=== PATIENT | male | born 1935 | race Caucasian/White ===

== ENCOUNTER 2017-04-29 10:13 | Inpatient (IN) | payer MEDICARE, BC ==
[~2017-04-29] VITALS: Ht 193 cm; Wt 94.8 kg
[~2017-04-29 10:13] MED LIST: ALLA266C2 TP; AMIO200T PO; ASPI-1152 PO; ATOR40TA PO; CARV25TA2 PO; DUTA0.5C2 PO; LACT10SO6 PO; PANT40TA2 PO; RIVA10TA PO; SITA1TAB2 PO; SITA50TA PO; TAMS-12 PO; Zolpidem Tartrate PO
[2017-04-29] MEDS ORDERED: ONDANSETRON HCL/PF 4 MG/2 ML VIAL IVP ONE (10:30)
[2017-04-29] MEDS ORDERED: IV NS 0.9% 1,000 ML BAG IV ONE (10:30)
[2017-04-29] MEDS ORDERED: ONDANSETRON HCL/PF 4 MG/2 ML VIAL ONE (10:43)
[2017-04-29 11:07] LABS: BASOPHILS % (AUTO) 0.2 % (0.0-2.0); EOSINOPHILS # (AUTO) 0.1 /CMM (0.0-0.7); EOSINOPHILS % (AUTO) 1.3 % (0.0-6.0); HEMATOCRIT 35 % (39-51); HEMOGLOBIN 12.1 g/dL (13.5-17.5); LYMPHOCYTES # (AUTO) 1.1 /CMM (0.8-4.8); LYMPHOCYTES % (AUTO) 11.9 % (20.0-44.0); MEAN CORPUSCULAR HEMOGLOBIN 32 PG (26.0-33.0); MEAN CORPUSCULAR HGB CONC 35 g/dl (31.0-36.0); MEAN CORPUSCULAR VOLUME 93 fL (80-96); MONOCYTES # (AUTO) 0.8 /CMM (0.1-1.30); MONOCYTES % (AUTO) 8.5 % (2.0-12.0); NEUTROPHILS % (AUTO) 78.1 % (43.0-81.0); PLATELET COUNT (AUTO) 166 /CMM (150-450); RDW COEFFICIENT OF VARIATION 15.7 (11.5-15.0); RED BLOOD CELL COUNT(AUTO) 3.77 MIL/uL (4.5-6.0)
[2017-04-29 11:16] LABS: CALCIUM, SERUM 9.4 mg/dL (8.5-10.1); CARBON DIOXIDE 27 mmol/L (21-32); CHLORIDE 108 mmol/L (98-107); CREATININE 2.3 mg/dL (0.6-1.3); GLUCOSE 167 mg/dL (74-106); POTASSIUM 3.7 mmol/L (3.5-5.1); SODIUM SERUM 141 mmol/L (136-145); UREA NITROGEN, BLOOD 20 mg/dL (7-18)
[2017-04-29 11:23] LABS: TROPONIN I 0.072 ng/mL (0.00-0.056)
[2017-04-29 11:26] LABS: INR 1.54 (0.85-1.15)
[2017-04-29 11:28] LABS: ALANINE AMINOTRANSFERASE 26 U/L (12-78); ALBUMIN 2.5 g/dL (3.4-5.0); ALKALINE PHOSPHATASE 72 U/L (46-116); ASPARTATE AMINOTRANSFERASE 59 U/L (15-37); B-TYPE NATRIURETIC PEPTIDE 5307 PG/ML (0-125); BILIRUBIN,DIRECT 0.4 mg/dL (0.0-0.2); BILIRUBIN,TOTAL 1.3 mg/dL (0.2-1.0); TOTAL PROTEIN, SERUM 5.3 g/dL (6.4-8.2)
[2017-04-29] MEDS ORDERED: AMIO200T2 PO (11:39)
[2017-04-29] MEDS ORDERED: DUTA0.5C PO (11:39)
[2017-04-29] MEDS ORDERED: FUROSEMIDE 40 MG/4 ML VIAL IV ONE (12:00)
[2017-04-29] MEDS ORDERED: FUROSEMIDE 20 MG/2 ML VIAL ONE (12:01)
[2017-04-29] MEDS ORDERED: FUROSEMIDE 40 MG/4 ML VIAL ONE (12:01)
[2017-04-29] MEDS ORDERED: MAG HYDROX/AL HYDROX/SIMETH 30 ML UDC PO PRN (13:30)
[2017-04-29] MEDS ORDERED: Z GUARD REMEDY 2 OZ OINT TP PRN (13:30)
[2017-04-29] MEDS ORDERED: ZOLPIDEM TARTRATE 5 MG TABLET PO PRN (13:30)
[2017-04-29] MEDS ORDERED: HYDROCODONE/APAP 5/325MG 1 EACH TABLET PO PRN (13:30)
[2017-04-29] MEDS ORDERED: MAGNESIUM HYDROXIDE 30 ML UDC PO PRN (13:30)
[2017-04-29] MEDS ORDERED: ACETAMINOPHEN 325 MG TABLET PO PRN (13:30)
[2017-04-29] MEDS ORDERED: ONDANSETRON HCL/PF 4 MG/2 ML VIAL IVP PRN (13:30)
[2017-04-29] MEDS ORDERED: DEXTROSE 50%-WATER 50 ML DISP.SYRIN IV PRN (13:30)
[2017-04-29 14:00] VITALS: BP 123/65
[2017-04-29 16:00] VITALS: BP_SYST 105; BP_SYST 144; BP_DIAS 42; BP_DIAS 76
[2017-04-29] MEDS: INSULIN REGULAR, HUMAN 100 UNIT/ML 3 ML VIAL SQ PRN (17:25)
[2017-04-29] MEDS: BLOOD SUGAR DIAGNOSTIC 1 EACH STRIP VI SCH ×2 (17:25→22:35)
[2017-04-29 20:00] VITALS: BP 104/51
[2017-04-29] MEDS: CARVEDILOL 12.5 MG TABLET PO SCH (21:00)
[2017-04-29] MEDS: ATORVASTATIN 40 MG TABLET PO SCH (22:35)
[2017-04-29] MEDS: DUTASTERIDE (0.5 MG) 0.5 MG CAPSULE PO SCH (22:35)
[2017-04-30 04:47] VITALS: BP 140/65
[2017-04-30] MEDS: BLOOD SUGAR DIAGNOSTIC 1 EACH STRIP VI SCH ×4 (07:00→21:15)
[2017-04-30] MEDS: INSULIN REGULAR, HUMAN 100 UNIT/ML 3 ML VIAL SQ PRN ×3 (07:02→17:50)
[2017-04-30 07:44] LABS: BASOPHILS % (AUTO) 0.5 % (0.0-2.0); EOSINOPHILS # (AUTO) 0.2 /CMM (0.0-0.7); EOSINOPHILS % (AUTO) 2.1 % (0.0-6.0); HEMATOCRIT 33 % (39-51); HEMOGLOBIN 11.3 g/dL (13.5-17.5); LYMPHOCYTES # (AUTO) 1.2 /CMM (0.8-4.8); LYMPHOCYTES % (AUTO) 13.6 % (20.0-44.0); MEAN CORPUSCULAR HEMOGLOBIN 33 PG (26.0-33.0); MEAN CORPUSCULAR HGB CONC 35 g/dl (31.0-36.0); MEAN CORPUSCULAR VOLUME 95 fL (80-96); MONOCYTES # (AUTO) 0.9 /CMM (0.1-1.30); MONOCYTES % (AUTO) 9.7 % (2.0-12.0); NEUTROPHILS # (AUTO) 6.7 /CMM (1.8-8.9); NEUTROPHILS % (AUTO) 74.1 % (43.0-81.0); PLATELET COUNT (AUTO) 163 /CMM (150-450); RED BLOOD CELL COUNT(AUTO) 3.44 MIL/uL (4.5-6.0); WHITE BLOOD COUNT (AUTO) 9.1 K/uL (4.3-11.0)
[2017-04-30 08:00] VITALS: BP 127/64
[2017-04-30 08:01] LABS: CALCIUM, SERUM 9.3 mg/dL (8.5-10.1); CHLORIDE 108 mmol/L (98-107); CREATININE 2.1 mg/dL (0.6-1.3); GLUCOSE 135 mg/dL (74-106); PHOSPHORUS 2.5 mg/dL (2.5-4.9); POTASSIUM 3.3 mmol/L (3.5-5.1); SODIUM SERUM 142 mmol/L (136-145); UREA NITROGEN, BLOOD 20 mg/dL (7-18)
[2017-04-30 08:05] LABS: MAGNESIUM 1.2 mg/dL (1.8-2.4)
[2017-04-30 08:07] LABS: CARBON DIOXIDE 27 mmol/L (21-32)
[2017-04-30] MEDS: AMIODARONE HCL 200 MG TABLET PO SCH (09:13)
[2017-04-30] MEDS: CARVEDILOL 12.5 MG TABLET PO SCH ×2 (09:13→21:00)
[2017-04-30] MEDS: RIVAROXABAN 10 MG TABLET PO SCH (09:26)
[2017-04-30] MEDS: IV 1/2NS 1000 ML 1,000 ML IV PRN (09:30)
[2017-04-30] MEDS: Magnesium 1GM/D5W 100ML PREMIX 100 ML IV SCH ×4 (11:17→16:29)
[2017-04-30] MEDS ORDERED: POTASSIUM CHLORIDE 10 MEQ TABLET.SA PO ONE (12:00)
[2017-04-30 16:00] VITALS: BP 153/73
[2017-04-30 20:00] VITALS: BP 129/56
[2017-04-30] MEDS: DUTASTERIDE (0.5 MG) 0.5 MG CAPSULE PO SCH (21:14)
[2017-04-30] MEDS: ATORVASTATIN 40 MG TABLET PO SCH (21:14)
[2017-04-30] MEDS: *INSULIN REGULAR(HUMULIN R)HUM 100 UNIT/ML VIAL SQ PRN (21:24)
[2017-05-01] VITALS: BP 117/55
[2017-05-01] MEDS: BLOOD SUGAR DIAGNOSTIC 1 EACH STRIP VI SCH ×4 (06:39→22:29)
[2017-05-01] MEDS: INSULIN REGULAR, HUMAN 100 UNIT/ML 3 ML VIAL SQ PRN ×3 (06:42→17:49)
[2017-05-01 07:33] LABS: BASOPHILS % (AUTO) 0.3 % (0.0-2.0); EOSINOPHILS # (AUTO) 0.2 /CMM (0.0-0.7); EOSINOPHILS % (AUTO) 2.5 % (0.0-6.0); HEMATOCRIT 33 % (39-51); HEMOGLOBIN 11.3 g/dL (13.5-17.5); LYMPHOCYTES # (AUTO) 1.3 /CMM (0.8-4.8); LYMPHOCYTES % (AUTO) 15.9 % (20.0-44.0); MEAN CORPUSCULAR HEMOGLOBIN 33 PG (26.0-33.0); MEAN CORPUSCULAR HGB CONC 35 g/dl (31.0-36.0); MEAN CORPUSCULAR VOLUME 94 fL (80-96); MONOCYTES # (AUTO) 0.9 /CMM (0.1-1.30); MONOCYTES % (AUTO) 11.1 % (2.0-12.0); NEUTROPHILS % (AUTO) 70.2 % (43.0-81.0); PLATELET COUNT (AUTO) 148 /CMM (150-450); RDW COEFFICIENT OF VARIATION 16.7 (11.5-15.0); RED BLOOD CELL COUNT(AUTO) 3.44 MIL/uL (4.5-6.0); WHITE BLOOD COUNT (AUTO) 8.5 K/uL (4.3-11.0)
[2017-05-01 07:48] LABS: ALANINE AMINOTRANSFERASE 26 U/L (12-78); ALBUMIN 2.3 g/dL (3.4-5.0); ALKALINE PHOSPHATASE 66 U/L (46-116); ASPARTATE AMINOTRANSFERASE 49 U/L (15-37); CALCIUM, SERUM 9.5 mg/dL (8.5-10.1); CARBON DIOXIDE 31 mmol/L (21-32); CHLORIDE 106 mmol/L (98-107); CREATININE 1.9 mg/dL (0.6-1.3); GLUCOSE 141 mg/dL (74-106); MAGNESIUM 1.7 mg/dL (1.8-2.4); PHOSPHORUS 2.2 mg/dL (2.5-4.9); POTASSIUM 3.3 mmol/L (3.5-5.1); SODIUM SERUM 142 mmol/L (136-145); TOTAL PROTEIN, SERUM 4.9 g/dL (6.4-8.2); TROPONIN I 0.079 ng/mL (0.00-0.056); UREA NITROGEN, BLOOD 19 mg/dL (7-18)
[2017-05-01 07:56] LABS: CREATINE KINASE, TOTAL 80 U/L (39-308)
[2017-05-01 08:00] VITALS: BP 131/50
[2017-05-01] MEDS: AMIODARONE HCL 200 MG TABLET PO SCH (08:33)
[2017-05-01] MEDS: CARVEDILOL 12.5 MG TABLET PO SCH ×2 (08:33→20:51)
[2017-05-01] MEDS: RIVAROXABAN 10 MG TABLET PO SCH (08:34)
[2017-05-01] MEDS: Magnesium 1GM/D5W 100ML PREMIX 100 ML IV SCH ×2 (09:03→10:01)
[2017-05-01] MEDS: POTASSIUM CHLORIDE 20 MEQ TAB.PRT.SR PO SCH ×3 (09:03→12:49)
[2017-05-01 09:23] LABS: APPEARANCE,URINE CLEAR (CLEAR); BILIRUBIN,URINE NEGATIVE (NEGATIVE); BLOOD, URINE NEGATIVE Ery/uL (NEGATIVE); COLOR,URINE YELLOW (YELLOW); KETONES,URINE NEGATIVE (NEGATIVE); LEUKOCYTE ESTERASE ,URINE NEGATIVE (NEGATIVE); NITRITE, URINE NEGATIVE (NEGATIVE); PH,URINE 5.5 (5.0-8.0); PROTEIN,URINE NEGATIVE (NEGATIVE); UGLUCOSE NEGATIVE (NEGATIVE); UROBILINOGEN,URINE 0.2 EU/dL (0.2)
[2017-05-01 10:03] LABS: CREATININE, URINE 137.4 MG/DL (30.0-125.0); URINE TOTAL PROTEIN 34.2 mg/dL (0-11.9)
[2017-05-01] MEDS ORDERED: POTASSIUM PHOSPHATE MM 15 MMOL in IV D5W 250 ML IV SCH (11:00)
[2017-05-01] MEDS ORDERED: Magnesium 1GM/D5W 100ML PREMIX 100 ML IV SCH (11:00)
[2017-05-01 11:37] LABS: INR 1.49 (0.87-1.13)
[2017-05-01] MEDS: Potassium Phosphate meq 11 MEQ in IV D5W 100 ML IV SCH ×2 (12:49→15:42)
[2017-05-01 13:49] LABS: EOSINOPHIL,URINE None Seen
[2017-05-01 16:00] VITALS: BP 145/75
[2017-05-01 20:00] VITALS: BP 120/58
[2017-05-01] MEDS: ATORVASTATIN 40 MG TABLET PO SCH (22:01)
[2017-05-01] MEDS: DUTASTERIDE (0.5 MG) 0.5 MG CAPSULE PO SCH (22:01)
[2017-05-01] MEDS: *INSULIN REGULAR(HUMULIN R)HUM 100 UNIT/ML VIAL SQ PRN (22:16)
[2017-05-01] MEDS: IV 1/2NS 1000 ML 1,000 ML IV PRN (22:36)
[2017-05-02] MEDS: BLOOD SUGAR DIAGNOSTIC 1 EACH STRIP VI SCH ×2 (07:20→12:08)
[2017-05-02] MEDS: INSULIN REGULAR, HUMAN 100 UNIT/ML 3 ML VIAL SQ PRN ×2 (07:25→12:15)
[2017-05-02 08:00] VITALS: BP 148/98
[2017-05-02 08:40] VITALS: BP 148/98
[2017-05-02] MEDS: AMIODARONE HCL 200 MG TABLET PO SCH (08:40)
[2017-05-02] MEDS: CARVEDILOL 12.5 MG TABLET PO SCH (08:40)
[2017-05-02 08:49] LABS: BASOPHILS % (AUTO) 0.2 % (0.0-2.0); EOSINOPHILS # (AUTO) 0.2 /CMM (0.0-0.7); EOSINOPHILS % (AUTO) 1.6 % (0.0-6.0); HEMATOCRIT 33 % (39-51); HEMOGLOBIN 11.4 g/dL (13.5-17.5); LYMPHOCYTES # (AUTO) 1.1 /CMM (0.8-4.8); LYMPHOCYTES % (AUTO) 10.7 % (20.0-44.0); MEAN CORPUSCULAR HEMOGLOBIN 33 PG (26.0-33.0); MEAN CORPUSCULAR HGB CONC 34 g/dl (31.0-36.0); MEAN CORPUSCULAR VOLUME 95 fL (80-96); MONOCYTES % (AUTO) 9.8 % (2.0-12.0); NEUTROPHILS # (AUTO) 8.2 /CMM (1.8-8.9); NEUTROPHILS % (AUTO) 77.7 % (43.0-81.0); PLATELET COUNT (AUTO) 162 /CMM (150-450); RDW COEFFICIENT OF VARIATION 16.4 (11.5-15.0); WHITE BLOOD COUNT (AUTO) 10.5 K/uL (4.3-11.0)
[2017-05-02] MEDS: RIVAROXABAN 10 MG TABLET PO SCH (08:49)
[2017-05-02 09:09] LABS: ALANINE AMINOTRANSFERASE 28 U/L (12-78); ALBUMIN 2.1 g/dL (3.4-5.0); ALKALINE PHOSPHATASE 61 U/L (46-116); ASPARTATE AMINOTRANSFERASE 49 U/L (15-37); CALCIUM, SERUM 9.3 mg/dL (8.5-10.1); CARBON DIOXIDE 30 mmol/L (21-32); CHLORIDE 107 mmol/L (98-107); CREATININE 1.6 mg/dL (0.6-1.3); GLUCOSE 148 mg/dL (74-106); MAGNESIUM 1.6 mg/dL (1.8-2.4); PHOSPHORUS 2.2 mg/dL (2.5-4.9); POTASSIUM 4.3 mmol/L (3.5-5.1); SODIUM SERUM 139 mmol/L (136-145); TOTAL PROTEIN, SERUM 4.7 g/dL (6.4-8.2); UREA NITROGEN, BLOOD 16 mg/dL (7-18)
[2017-05-02 10:17] LABS: *SPE A/G RATIO 1.4 (0.7-1.7); *SPE ALBUMIN 2.6 g/dL (2.9-4.4); *SPE ALPHA-1-GLOBULIN 0.2 g/dL (0.0-0.4); *SPE ALPHA-2-GLOBULIN 0.6 g/dL (0.4-1.0); *SPE BETA GLOBULIN 0.6 g/dL (0.7-1.3); *SPE GLOBULIN, TOTAL 1.9 g/dL (2.2-3.9); *SPE M-SPIKE Not Observed g/dL (Not Observed); *SPEGAMMA GLOBULIN 0.6 g/dL (0.4-1.8)
[2017-05-02 12:12] LABS: PTH, INTACT 55 pg/mL (15-65)
[2017-05-02] MEDS ORDERED: K PHOS NEUTRAL 250 MG TABLET PO ONE (14:00)
[2017-05-04 11:11] LABS: CALCITRIOL VIT D,1, 25 DIHYDRO 16.2 pg/mL (19.9-79.3)
== END 2017-05-02 14:30 | DRG 280 ==
LOC: ER 10:16 → TELE 13:32 → MED 04-30 09:26
PROVIDERS: ADMIT Internal Medicine; ATTEND Internal Medicine
DX: I21.A1 Myocardial infarction type 2 (principal); N17.0 Acute kidney failure with tubular necrosis; E87.2 Acidosis; E11.22 Type 2 diabetes mellitus with diabetic chronic kidney disease; I48.91 Unspecified atrial fibrillation; I13.0 Hypertensive heart and chronic kidney disease with heart failure and stage 1 through stage 4 chronic kidney disease, or unspecified chronic kidney disease; I50.40 Unspecified combined systolic (congestive) and diastolic (congestive) heart failure; G90.8 Other disorders of autonomic nervous system; E83.42 Hypomagnesemia; D32.9 Benign neoplasm of meninges, unspecified; E86.0 Dehydration; D63.8 Anemia in other chronic diseases classified elsewhere; E78.5 Hyperlipidemia, unspecified; I25.10 Atherosclerotic heart disease of native coronary artery without angina pectoris; E87.6 Hypokalemia; Z95.1 Presence of aortocoronary bypass graft; Z90.49 Acquired absence of other specified parts of digestive tract; Z86.73 Personal history of transient ischemic attack (TIA), and cerebral infarction without residual deficits; Z86.011 Personal history of benign neoplasm of the brain; Z82.49 Family history of ischemic heart disease and other diseases of the circulatory system; Z79.899 Other long term (current) drug therapy; Z79.82 Long term (current) use of aspirin; Z79.01 Long term (current) use of anticoagulants; N18.9 Chronic kidney disease, unspecified; N40.0 Benign prostatic hyperplasia without lower urinary tract symptoms; R26.9 Unspecified abnormalities of gait and mobility
CPT/HCPCS: 36415; 70450-TC; 71045-TC; 72131-TC; 80048-TC; 80053-TC; 80076-TC; 81000-TC; 82306; 82550-TC; 82570-TC; 82652; 82962-TC; 83605-TC; 83735-TC; 83880; 83970; 84100-TC; 84155; 84155-TC; 84165; 84300-TC; 84484-TC; 85025-TC; 85610-TC; 85730-TC; 87040-TC; 87081-TC; 93307-TC; 97110-TC; 97530-TC; A4606; J1815; J1940; J2405; J3475; J3490; J7030; J7060; Z7610

== ENCOUNTER 2017-05-08 18:32 | Emergency (ER) | payer MEDICARE, BC ==
[~2017-05-08] VITALS: Ht 182.9 cm; Wt 90.7 kg
[~2017-05-08 18:32] MED LIST changes: -ALLA266C2 TP; -AMIO200T PO; +AMIO200T2 PO; -ASPI-1152 PO; +DUTA0.5C PO; -DUTA0.5C2 PO; -LACT10SO6 PO; -PANT40TA2 PO; -SITA50TA PO; -TAMS-12 PO; -Zolpidem Tartrate PO
--- NOTE | 2017-05-08 19:13 | NUR ---
81 Y/O MALE PLACED IN BED 1 S/P TRIP AND FALL. PT FELL ON LEFT HIP. NO OBVIOUS ROTATION OF LEG. PT ALERT AND ORIENTED. REMEBERS ENTIRE EPISODE. NOAH MARQUES.
--- NOTE | 2017-05-08 20:07 | NUR ---
X-RAY OF LEFT HIP TAKEN. WAITING FOR RESULTS.
--- NOTE | 2017-05-08 21:09 | NUR ---
GOT REPORT FROM MARCIANO. ASSUMED CARE OF PATIENT CARE.
--- NOTE | 2017-05-08 21:20 | NUR ---
CALLED [facility] FOR TRANSPORT ETA OF [id number] WAS GIVEN. TRIP#[id number]
--- NOTE | 2017-05-08 22:20 | NUR ---
Patient discharged to [facility] in stable condition. Written and verbal after care instructions given. Patient verbalizes understanding of instruction. Pt transferred with cristo. stephanes. no acute distress noted. pt aaox4
[2017-05-08 22:50] VITALS: BP 141/78
== END 2017-05-08 22:40 | disposition home or self-care (01) ==
LOC: ER 18:39
DX: M25.552 Pain in left hip (principal); E11.9 Type 2 diabetes mellitus without complications; I11.0 Hypertensive heart disease with heart failure; I50.9 Heart failure, unspecified; I48.91 Unspecified atrial fibrillation; Z95.0 Presence of cardiac pacemaker
CPT/HCPCS: 73502; A4606; Z7610

== ENCOUNTER 2017-07-10 03:35 | Inpatient (IN) | payer MEDICARE, BC ==
[~2017-07-10] VITALS: Ht 167.6 cm; Wt 85.7 kg
[~2017-07-10 03:35] MED LIST changes: -AMIO200T2 PO; +AMIO200T4 PO
--- NOTE | 2017-07-10 03:35 | NUR ---
TO BED 10 BIB PARAMEDICS C/O HYPOGLYCEMIA, BS-39; GIVEN D10 AND SANDWICH BY EMS COMPUTER AIDED DESIGN OPERATOR, BS 184. RECEIVE PT AAOX2 NO ACUTE DISTRESS NOTED, RESP EVEN AND UNLABORED. SKIN WARM, NONDIAPHORETIC. ER MD AT BEDSIDE TO EVAL PT WITH ORDERS RECEIVED. WILL CARRY OUT ORDERS.
--- NOTE | 2017-07-10 03:35 | NUR ---
TO BED 10 BIB PARAMEDICS C/O HYPOGLYCEMIA, BS-39; GIVEN D10 AND SANDWICH BY EMS VISITOR SERVICES COORDINATOR, BS 184. RECEIVE PT AAOX4 NO ACUTE DISTRESS NOTED, RESP EVEN AND UNLABORED. SKIN WARM, NONDIAPHORETIC. ER MD AT BEDSIDE TO EVAL PT WITH ORDERS RECEIVED. WILL CARRY OUT ORDERS.
[2017-07-10 04:00] LABS: BASOPHILS % (AUTO) 0.1 % (0.0-2.0); EOSINOPHILS % (AUTO) 0.8 % (0.0-6.0); HEMATOCRIT 35 % (39-51); HEMOGLOBIN 11.8 g/dL (13.5-17.5); LYMPHOCYTES # (AUTO) 1.1 /CMM (0.8-4.8); LYMPHOCYTES % (AUTO) 8.1 % (20.0-44.0); MEAN CORPUSCULAR HGB CONC 34 g/dl (31.0-36.0); MEAN CORPUSCULAR VOLUME 94 fL (80-96); MONOCYTES # (AUTO) 0.6 /CMM (0.1-1.30); MONOCYTES % (AUTO) 4.5 % (2.0-12.0); NEUTROPHILS # (AUTO) 11.4 /CMM (1.8-8.9); NEUTROPHILS % (AUTO) 86.5 % (43.0-81.0); PLATELET COUNT (AUTO) 333 /CMM (150-450); RDW COEFFICIENT OF VARIATION 14.3 (11.5-15.0); WHITE BLOOD COUNT (AUTO) 13.2 K/uL (4.3-11.0)
--- NOTE | 2017-07-10 04:09 | NUR ---
PT ASLEEP, EASILY AROUSABLE NO ACUTE DISTRESS NOTED, RESP EVEN AND UNLABORED. CALL LIGHT WITHIN REACH.
[2017-07-10 04:14] LABS: CALCIUM, SERUM 9.1 mg/dL (8.5-10.1); CARBON DIOXIDE 27 mmol/L (21-32); CHLORIDE 107 mmol/L (98-107); CREATININE 1.4 mg/dL (0.6-1.3); GLUCOSE 102 mg/dL (74-106); POTASSIUM 3.9 mmol/L (3.5-5.1); SODIUM SERUM 140 mmol/L (136-145); UREA NITROGEN, BLOOD 21 mg/dL (7-18)
[2017-07-10 04:16] LABS: SERUM AMMONIA 4 umol/L (11-32)
[2017-07-10 04:20] LABS: ALANINE AMINOTRANSFERASE 66 U/L (12-78); ALBUMIN 2.1 g/dL (3.4-5.0); ALKALINE PHOSPHATASE 84 U/L (46-116); ASPARTATE AMINOTRANSFERASE 70 U/L (15-37); BILIRUBIN,DIRECT 0.4 mg/dL (0.0-0.2); BILIRUBIN,TOTAL 0.9 mg/dL (0.2-1.0); INR 1.2 (0.87-1.13); LIPASE 39 U/L (73-393); TOTAL PROTEIN, SERUM 5.3 g/dL (6.4-8.2)
[2017-07-10 04:22] LABS: TROPONIN I 0.045 ng/mL (0.00-0.056)
--- NOTE | 2017-07-10 04:25 | NUR ---
P TRANSPORTED TO RADIOLOGY FOR CT HEAD.
[2017-07-10] MEDS ORDERED: IV NS 0.9% 1,000 ML IV ONE (04:39)
[2017-07-10 05:32] LABS: APPEARANCE,URINE SL CLOUDY (CLEAR); BILIRUBIN,URINE NEGATIVE (NEGATIVE); BLOOD, URINE TRACE Ery/uL (NEGATIVE); COLOR,URINE YELLOW (YELLOW); KETONES,URINE NEGATIVE (NEGATIVE); LEUKOCYTE ESTERASE ,URINE TRACE (NEGATIVE); NITRITE, URINE NEGATIVE (NEGATIVE); PROTEIN,URINE 2+ mg/dl (NEGATIVE); UGLUCOSE TRACE mg/dL (NEGATIVE)
--- NOTE | 2017-07-10 05:48 | NUR ---
ER TALKING TO RADIOLOGY REGARDING CT HEAD RESULT.
--- NOTE | 2017-07-10 05:58 | NUR ---
PT RESTING QUIETLY, NO ACUTE DISTRESS NOTED, RESP EVEN AND UNLABORED.
[2017-07-10 06:01] LABS: BACTERIA,URINE Few /HPF (None Seen); SQUAMOUS EPITHELIAL CELL,UR Moderate /HPF (None Seen); WBC,URINE 51-80 /HPF (0-3)
--- NOTE | 2017-07-10 06:01 | NUR ---
JASS HAQ TALKING TO CHANEL KRUSE REGARDING PT ADMISSION.
[2017-07-10] MEDS ORDERED: IV D5W 1,000 ML IV PRN (06:08)
[2017-07-10] MEDS ORDERED: ONDANSETRON HCL/PF 4 MG/2 ML VIAL IVP PRN (06:30)
[2017-07-10] MEDS ORDERED: ACETAMINOPHEN 325 MG TABLET PO PRN (06:30)
[2017-07-10] MEDS ORDERED: ACETAMINOPHEN W/ CODEINE#3 1 EA TABLET PO PRN (06:30)
--- NOTE | 2017-07-10 07:26 | NUR ---
REPORT GIVEN TO CLARA/SHOW OPERATIONS SUPERVISOR FLOOR
--- NOTE | 2017-07-10 07:30 | NUR ---
REPORT RECEIVED FROM ER. WAITING FOR PT TO ARRIVE. BED PREPARED.
[2017-07-10 08:22] LABS: CHOLESTEROL 91 mg/dL (<200); HDL CHOLESTEROL 19 mg/dL (40-60); LDL 55 mg/dL (0-99); TRIGLYCERIDES 50 mg/dL (30-150)
--- NOTE | 2017-07-10 08:22 | NUR ---
PT RECEIVED AND IN BED. NO SOB OR DISTRESS NOTED AT THIS TIME. PATIENT DENIES PAIN. PATIENT ORIENTED TO ROOM AND CALL LIGHT. PATIENT DIAPER CHANGED AND SKIN ASSESSED. VITAL SIGNS CHECKED AND RECORDED. ONLY PT BELONGING IS A DIGITAL WATCH. BED IN A LOW POSITION, CALL LIGHT WITHIN PATIENT REACH. WILL MONITOR.
--- NOTE | 2017-07-10 08:32 | NUR ---
PT IS AV PACING AT 60 ON THE MONITOR. WILL DO NURSING BEDSIDE SWALLOW EVAL PRIOR TO GIVING MEDS.
[2017-07-10] MEDS ORDERED: CARVEDILOL 25 MG TABLET PO SCH (09:00)
[2017-07-10 09:06] LABS: INR 1.1 (0.87-1.13)
[2017-07-10 09:07] VITALS: BP 172/81
--- NOTE | 2017-07-10 09:13 | NUR ---
WILL ASK MD ABOUT D5W ORDER PATIENT BLOOD SUGAR IS NOW 204.
--- NOTE | 2017-07-10 09:37 | NUR ---
PT PASSED NURSING SWALLOW EVAL. ABLE TO TOLERATE THIN LIQUIDS WITHOUT COUGHING OR CHOKING.
[2017-07-10] MEDS: AMIODARONE HCL 200 MG TABLET PO SCH (09:38)
[2017-07-10] MEDS: SENNOSIDES/DOCUSATE SODIUM 1 TAB TABLET PO SCH (09:38)
[2017-07-10] MEDS: PANTOPRAZOLE 40 MG TABLET.DR PO SCH (09:38)
[2017-07-10] MEDS: CARVEDILOL 12.5 MG TABLET PO SCH (09:38)
[2017-07-10] MEDS: DOCUSATE SODIUM 100 MG CAPSULE PO SCH ×2 (09:39→16:31)
[2017-07-10] MEDS: BLOOD SUGAR DIAGNOSTIC 1 EACH STRIP IN SCH ×5 (09:39→22:07)
[2017-07-10] MEDS ORDERED: Z GUARD REMEDY 4 OZ OINT TP PRN (10:00)
--- NOTE | 2017-07-10 10:13 | NUR ---
SPOKE TO ERIKA ON THE FLOOR. INSTRUCTIONAL TECHNOLOGY SPECIALIST STATES OK TO DC D5W PATIENT IS EATING. STATES TO KEEP Q4H ACCU CHECKS. WILL CARRY OUT ORDERS.
--- NOTE | 2017-07-10 11:09 | NUR ---
CALLED [facility] AND ASKED FOR DVT PUMP. THEY STATE THEY WILL SEND ONE TO THE UNIT SOON ONE BECOMES AVAILABLE.
[2017-07-10 12:00] VITALS: BP 142/72
[2017-07-10] MEDS: CEFTRIAXONE 1 G in IV D5W 50 ML IV SCH (12:12)
--- NOTE | 2017-07-10 12:15 | NUR ---
PLACED PT ON SCD PER MD ORDER.
[2017-07-10 15:50] VITALS: BP 135/67
--- NOTE | 2017-07-10 17:10 | NUR ---
CALLED AND SPOKE TO ERIKA ABOUT PATIENT BLOOD SUGAR LEVELS. BASED ON THE INFORMATION, ERIKA ASKS TO PLACE THE PT ON A MILD, AC/HS INSULIN SLIDING SCALE. FIRER PORTABLE BOILER ALSO STATES TO DC THE Q4H ACCU CHECKS. WILL PLACE ORDERS.
[2017-07-10] MEDS ORDERED: DEXTROSE 50%-WATER 50 ML DISP.SYRIN IV PRN (17:30)
--- NOTE | 2017-07-10 17:36 | NUR ---
CALLED PHARMACY AND TALKED TO PETE. INFORMED HIM OF NEW INSULIN ORDER ON PT. PETE STATES HE WILL PROCESS THE NEW MED AND SEND IT SOON HE CAN.
[2017-07-10] MEDS: INSULIN REGULAR, HUMAN 100 UNIT/ML 3 ML VIAL SQ PRN ×2 (17:57→22:29)
--- NOTE | 2017-07-10 18:36 | NUR ---
NO SIGNIFICANT CHANGES IN PATIENT CONDITION THROUGHOUT THE SHIFT. NEURO CHECKS DONE Q4H, NO CHANGES. BED IN A LOW POSITION, CALL LIGHT WITHIN PATIENT REACH. NO SOB OR DISTRESS, PATIENT DENIES PAIN. WILL ENDORSE FOR JACQUELINE.
--- NOTE | 2017-07-10 19:20 | NUR ---
CREW BOAT OPERATOR OPENING NOTE RECEIVED PATIENT IN BED RESTING COMFORTABLY, ALERT ORIENT X3, SLIGHT CONFUSION AT TIMES. ON 2L OXYGEN VIA NC, TOLERATING WELL. IN NO APPARENT DISTRESS OR DISCOMFORT, RESPIRATIONS EVEN AND UNLABORED. DENIES SOB OR PAIN AT THIS TIME. LAC IV LINE 20G SL. PATENT AND INTACT. PATIENT ABLE TO VERBALIZE NEEDS. INCONTINENT WITH DIAPER, KEPT CLEAN AND COMFORTABLE. SAFETY MEASURES IN PLACE, BED IN LOW LOCKED POSITION SIDE RAILS UP X2, CALL LIGHT WITHIN EASY REACH. WILL CONTINUE TO MONITOR.
[2017-07-10 20:00] VITALS: BP_SYST 115; BP_SYST 117; BP_DIAS 48; BP_DIAS 64
--- NOTE | 2017-07-10 21:00 | NUR ---
COREG HELD FOR NOW BP: 117/48, HR: 60. WILL RECHECK IN ONE HOUR.
[2017-07-10] MEDS ORDERED: SIMVASTATIN 10 MG TABLET PO SCH (22:00)
--- NOTE | 2017-07-10 22:00 | NUR ---
CONTINUE HOLDING COREG, CHECKED BP: 139/56, HR 60. VERIFIED MANUALLY: 130/55, HR 60. WILL CHECK VITALS IN ONE HOUR.
[2017-07-10] MEDS: DUTASTERIDE (0.5 MG) 0.5 MG CAPSULE PO SCH (22:23)
[2017-07-10] MEDS: ATORVASTATIN 40 MG TABLET PO SCH (22:24)
[2017-07-11] VITALS (7 sets, daily range): BP systolic 123–144; BP diastolic 56–71
[2017-07-11] MEDS: CARVEDILOL 12.5 MG TABLET PO SCH ×4 (01:10→20:22)
--- NOTE | 2017-07-11 01:14 | NUR ---
BP ELEVATED TO 142/67, HEART RATE 65. ADMINISTERED COREG 25MG PAST SCHEDULED TIME. CHARGE NURSE WAS NOTIFIED. WILL CONTINUE TO MONITOR.
--- NOTE | 2017-07-11 05:00 | NUR ---
PATIENT REPORTS BEING SOB, HEAVY BREATHING AND COUGHING WITH INABILITY TO COUGH OUT SECRETIONS. HOB ELEVATED, PLACED ON O2 3 L VIA NC. CHECKED THE SATURATION: 98%. LUNG SOUNDS REVEALED CRACKLES ON ANTERIOR BRONCHIAL AREAS. CALLED RT TO ASSIST WITH DEEP SUCTION. WILL CONTINUE TO MONITOR.
--- NOTE | 2017-07-11 05:30 | NUR ---
PATIENT ATTEMPTED TO COUGH AND WAS SUCTIONED BY RT. BREATHING EASED, LUNG SOUNDS CLEARED UP. PATIENT WITH HX OF CHF. REPORTED THIS HAPPENED ON PREVIOUS DAY WELL. CURRENTLY IN NO DISTRESS. RESPIRATIONS EVEN AND UNLABORED, O2 SATURATION AT 98%. WILL CONTINUE TO MONITOR.
[2017-07-11 06:25] LABS: BASOPHILS % (AUTO) 0.3 % (0.0-2.0); HEMATOCRIT 34 % (39-51); HEMOGLOBIN 11.6 g/dL (13.5-17.5); MEAN CORPUSCULAR HGB CONC 34 g/dl (31.0-36.0); MEAN CORPUSCULAR VOLUME 93 fL (80-96); MONOCYTES % (AUTO) 8.5 % (2.0-12.0); NEUTROPHILS # (AUTO) 8.9 /CMM (1.8-8.9); NEUTROPHILS % (AUTO) 72.2 % (43.0-81.0); PLATELET COUNT (AUTO) 358 /CMM (150-450); RDW COEFFICIENT OF VARIATION 13.1 (11.5-15.0); RED BLOOD CELL COUNT(AUTO) 3.66 MIL/uL (4.5-6.0); WHITE BLOOD COUNT (AUTO) 12.3 K/uL (4.3-11.0)
[2017-07-11] MEDS: BLOOD SUGAR DIAGNOSTIC 1 EACH STRIP IN SCH ×4 (06:51→21:38)
[2017-07-11] MEDS: INSULIN REGULAR, HUMAN 100 UNIT/ML 3 ML VIAL SQ PRN ×4 (06:59→21:52)
--- NOTE | 2017-07-11 07:30 | NUR ---
RN OPENING TELE NOTES RECEIVED PT. IN BED A&OX4. TELE MONITOR READING AV PACING AT 60 BPM. BREATHING UNLABORED ON OXYGEN AT 3L/MIN VIA NASAL CANNULA. NO SOB. NO S/S OF ACUTE DISTRESS. BED IS IN LOWEST, AND LOCKED POSITION, AND 2 SIDE RAILS UP. INSTRUCTED PT. TO USE CALL LIGHT FOR ASSISTANCE. ALL NEEDS MET. WILL CONTINUE TO ASSESS AND MONITOR.
--- NOTE | 2017-07-11 07:35 | NUR ---
GENERATOR SWITCHBOARD OPERATOR CLOSING NOTE PATIENT IN BED RESTING COMFORTABLY, ALERT ORIENT X3, SLIGHT CONFUSION AT TIMES. ON 3L OXYGEN VIA NC, TOLERATING WELL. IN NO APPARENT DISTRESS OR DISCOMFORT, RESPIRATIONS EVEN AND UNLABORED. DENIES SOB OR PAIN AT THIS TIME. R HAND IV LINE 22G SL. PATENT AND INTACT. PATIENT ABLE TO VERBALIZE NEEDS. INCONTINENT WITH DIAPER, KEPT CLEAN AND COMFORTABLE, ALL NEEDS ATTENDED. ON TELE MONITORING WITH AV PACING IN 60S. SAFETY MEASURES IN PLACE, BED IN LOW LOCKED POSITION SIDE RAILS UP X2, CALL LIGHT WITHIN EASY REACH. WILL ENDORSE TO AM NURSE FOR JACQUELINE
[2017-07-11] MEDS: AMIODARONE HCL 200 MG TABLET PO SCH ×2 (09:00→11:04)
[2017-07-11] MEDS: FUROSEMIDE 40 MG/4 ML VIAL IV SCH ×3 (09:00→17:08)
[2017-07-11 09:29] LABS: CALCIUM, SERUM 8.8 mg/dL (8.5-10.1); CARBON DIOXIDE 27 mmol/L (21-32); CHLORIDE 107 mmol/L (98-107); CREATININE 1.5 mg/dL (0.6-1.3); GLUCOSE 135 mg/dL (74-106); POTASSIUM 4.5 mmol/L (3.5-5.1); SODIUM SERUM 140 mmol/L (136-145); UREA NITROGEN, BLOOD 22 mg/dL (7-18)
[2017-07-11 09:31] LABS: INR 1.05 (0.87-1.13)
[2017-07-11] MEDS: PANTOPRAZOLE 40 MG TABLET.DR PO SCH (09:33)
[2017-07-11] MEDS: RIVAROXABAN 10 MG TABLET PO SCH (09:34)
[2017-07-11] MEDS: DOCUSATE SODIUM 100 MG CAPSULE PO SCH ×2 (09:36→17:08)
[2017-07-11] MEDS: SENNOSIDES/DOCUSATE SODIUM 1 TAB TABLET PO SCH (09:37)
[2017-07-11] MEDS: ASPIRIN EC 81 MG TABLET.DR PO SCH (11:01)
[2017-07-11] MEDS: CEFTRIAXONE 1 G in IV D5W 50 ML IV SCH (11:59)
--- NOTE | 2017-07-11 14:03 | NUR ---
WOUND CARE CONSULT: PT FOLLOWED BY PODIATRY FOR LOWER EXTREMITIES. DEFER TO PODIATRY FOR FEET. ALL SKIN PROTECTION MEASURES IN PLACE AND DISCUSSED WITH NURSING STAFF. WILL SEE PRN. CURRENT CLAUDIO SCORE IS 14. MD IN AGREEMENT WITH PLAN OF CARE.
--- NOTE | 2017-07-11 19:30 | NUR ---
RN CLOSING NOTES PT. IS IN BED A&OX4. BREATHING UNLABORED ON OXYGEN AT 2L/MIN VIA NASAL CANNULA. NO SOB. NO S/S OF ACUTE DISTRESS. BED IS IN LOWEST, AND LOCKED POSITION, AND 2 SIDE RAILS UP. INSTRUCTED PT. TO USE CALL LIGHT FOR ASSISTANCE. ALL NEEDS MET. WILL ENDORSE REPORT TO NURSE. STROKE SURVEY COMPLETED.
--- NOTE | 2017-07-11 20:00 | NUR ---
MS/RN OPENING NOTES PATIETN IN BED, HOB ELEVATES, ALERT, ORIENTED X3, ABLE TO VERBALIZE NEEDS, COOPERATIVE TO CARE, OBSERVE WITH SOME CONGESTION, SUCTION NEEDED,, SKIN WARM TO TOUCH, RECEIVED ENDORSEMENT FROM AM RN FOR JACQUELINE, USES URINAL, ASSIST FOR COMFORT, RIGHT HAND GAUGE 22 PATENT WITH NO S/S OF INFILTRATION. CALL LIGHTS WITHIN REACH, PLAN OF CARE DISCUSSED/ WILL CONTINUE TO MONITOR. BED IN LOCK POSITION.
[2017-07-11] MEDS: DUTASTERIDE (0.5 MG) 0.5 MG CAPSULE PO SCH (21:34)
[2017-07-11] MEDS: ATORVASTATIN 40 MG TABLET PO SCH (21:34)
[2017-07-12] MEDS: BLOOD SUGAR DIAGNOSTIC 1 EACH STRIP IN SCH ×4 (06:07→22:04)
[2017-07-12] MEDS: INSULIN REGULAR, HUMAN 100 UNIT/ML 3 ML VIAL SQ PRN ×3 (06:31→22:13)
--- NOTE | 2017-07-12 06:38 | NUR ---
312-1 PATIENT IN BED, ABLE TO VERBALIZE NEEDS, REQUIRE FREQUENT ORIENTATION, ALERT X1, DISORIENTED AT TIMES, PROVIDED ASSISTANCE , KEEP COMFORTABLE, COMPLIANCT WITH MEDICATION REGIMEN, ABLE TO SLEEP, SUCTION NEEDED, KEEP HOB ELEVATE, WILL ENDORSE TO AM RN FOR JACQUELINE. BED IN LOCK POSITION.
[2017-07-12 07:12] LABS: BASOPHILS # (AUTO) 0.1 /CMM (0.0-0.2); BASOPHILS % (AUTO) 0.7 % (0.0-2.0); EOSINOPHILS % (AUTO) 3.7 % (0.0-6.0); HEMATOCRIT 34 % (39-51); HEMOGLOBIN 11.8 g/dL (13.5-17.5); LYMPHOCYTES # (AUTO) 1.8 /CMM (0.8-4.8); LYMPHOCYTES % (AUTO) 16.6 % (20.0-44.0); MEAN CORPUSCULAR HGB CONC 35 g/dl (31.0-36.0); MEAN CORPUSCULAR VOLUME 93 fL (80-96); MONOCYTES # (AUTO) 1.2 /CMM (0.1-1.30); MONOCYTES % (AUTO) 11.6 % (2.0-12.0); NEUTROPHILS # (AUTO) 7.2 /CMM (1.8-8.9); NEUTROPHILS % (AUTO) 67.4 % (43.0-81.0); PLATELET COUNT (AUTO) 323 /CMM (150-450); RDW COEFFICIENT OF VARIATION 13.2 (11.5-15.0); RED BLOOD CELL COUNT(AUTO) 3.67 MIL/uL (4.5-6.0); WHITE BLOOD COUNT (AUTO) 10.7 K/uL (4.3-11.0)
[2017-07-12 07:27] LABS: INR 1.14 (0.87-1.13)
--- NOTE | 2017-07-12 07:55 | NUR ---
MS RN RECEIVED ON BED, AWAKE,ALERT,ORIENTED X3,NTO IN ANY FORM OF DISTRESS, RESPIRATION EVEN AND UNLABORED, NO SOB NOTED.WILL MONITOR PATIENT'S CONDITION.
[2017-07-12 08:00] VITALS: BP 144/72
[2017-07-12] MEDS ORDERED: BUMETANIDE INJ 8 MG in IV NS 0.9% 48 ML IV ONE (08:30)
--- NOTE | 2017-07-12 09:00 | NUR ---
MS BELTRAN BREAKFAST SERVED,DUE MEDS GIVEN,TOLERATED WELL.
[2017-07-12] MEDS: SENNOSIDES/DOCUSATE SODIUM 1 TAB TABLET PO SCH (09:48)
[2017-07-12] MEDS: ASPIRIN EC 81 MG TABLET.DR PO SCH (09:48)
[2017-07-12] MEDS: DOCUSATE SODIUM 100 MG CAPSULE PO SCH ×2 (09:48→17:00)
[2017-07-12] MEDS: AMIODARONE HCL 200 MG TABLET PO SCH (09:49)
[2017-07-12] MEDS: CARVEDILOL 12.5 MG TABLET PO SCH ×2 (09:49→22:03)
[2017-07-12] MEDS: RIVAROXABAN 10 MG TABLET PO SCH (09:50)
[2017-07-12] MEDS: PANTOPRAZOLE 40 MG TABLET.DR PO SCH (09:53)
--- NOTE | 2017-07-12 11:00 | NUR ---
MS RN PATIENT GETTING CONFUSED ,GETTING OUT OF BED, REMOVED HIS IV HEPLOCK. WILL REINSERT LATER.
[2017-07-12 11:07] LABS: ALANINE AMINOTRANSFERASE 49 U/L (12-78); ALKALINE PHOSPHATASE 78 U/L (46-116); ASPARTATE AMINOTRANSFERASE 48 U/L (15-37); BILIRUBIN,TOTAL 0.8 mg/dL (0.2-1.0); CALCIUM, SERUM 9.1 mg/dL (8.5-10.1); CARBON DIOXIDE 28 mmol/L (21-32); CHLORIDE 105 mmol/L (98-107); CREATININE 1.5 mg/dL (0.6-1.3); GLUCOSE 139 mg/dL (74-106); MAGNESIUM 1.3 mg/dL (1.8-2.4); PHOSPHORUS 2.9 mg/dL (2.5-4.9); POTASSIUM 4.6 mmol/L (3.5-5.1); SODIUM SERUM 140 mmol/L (136-145); TOTAL PROTEIN, SERUM 5.1 g/dL (6.4-8.2); TROPONIN I 0.046 ng/mL (0.00-0.056); UREA NITROGEN, BLOOD 21 mg/dL (7-18)
--- NOTE | 2017-07-12 12:00 | NUR ---
MS RN STILL CONFUSED, REFUSED ACCUCHECK AT THIS TIME.
--- NOTE | 2017-07-12 15:00 | NUR ---
MS RN PATIENT OUT ON A WHEELCHAIR, PARK NEXT TO NURSE STATION, WILL MONITOR PATIENT.
[2017-07-12] MEDS: Magnesium 1GM/D5W 100ML PREMIX 100 ML IV SCH ×4 (15:22→19:09)
[2017-07-12] MEDS: CEFTRIAXONE 1 G in IV D5W 50 ML IV SCH (15:22)
--- NOTE | 2017-07-12 16:00 | NUR ---
MS RUBY WAS SEEN BUY ERIKA W/ ORDERS MADE AND CARRIED OUT.
[2017-07-12 16:05] VITALS: BP 96/55
--- NOTE | 2017-07-12 17:55 | NUR ---
MS BELTRAN BS -276 - 6 UNITS OF REG INSULIN GIVEN SQ.
--- NOTE | 2017-07-12 19:40 | NUR ---
RN OPENING NOTES RECEIVED REPORT FROM KEHINDE RNHAKEEM. FOUND Pt AWAKE, RESTING IN BED. NO S/S OF ACUTE DISTRESS OR SOB NOTED. Pt IS A/OX2, WITH SOME CONFUSION. 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 WHEN ASKED WHERE HE IS, [place] IV ACCESS ON RFA #22G, SL. SAFETY MEASURES IN PLACE. BED LOW, LOCKED, HOB ELEVATED, SIDE RAILS UP, CALL LIGHT AND BEDSIDE TABLE WITHIN REACH. WILL CONTINUE TO MONITOR Pt THROUGHOUT THE NIGHT.
[2017-07-12 20:00] VITALS: BP 136/68
[2017-07-12] MEDS: ATORVASTATIN 40 MG TABLET PO SCH (22:01)
[2017-07-12] MEDS: DUTASTERIDE (0.5 MG) 0.5 MG CAPSULE PO SCH (22:02)
--- NOTE | 2017-07-12 22:15 | NUR ---
RN NOTES HS ACCUCHECK BG 197. ADMINISTERED 3UN OF INSULIN PER SLIDING SCALE. SNACKS PROVIDED AT BEDSIDE.
--- NOTE | 2017-07-13 06:45 | NUR ---
RN NOTES AC ACCUCHECK BG 167. ADMINISTERED 3UN OF INSULIN PER SLIDING SCALE. SNACKS PROVIDED AT BEDSIDE.
--- NOTE | 2017-07-13 06:50 | NUR ---
RN CLOSING NOTES NO SIGNIFICANT CHANGES IN Pt's CONDITION THROUGHOUT THE SHIFT. Pt REMAINS STABLE AT THIS TIME. NO S/S OF ACUTE DISTRESS OR SOB NOTED. ALL NEEDS MET AND ATTENDED TO. SAFETY MEASURES IN PLACE. WILL ENDORSE TO DAYSHIFT RN FOR Pt's JACQUELINE.
[2017-07-13] MEDS: BLOOD SUGAR DIAGNOSTIC 1 EACH STRIP IN SCH ×2 (07:15→11:16)
[2017-07-13 07:17] LABS: BASOPHILS % (AUTO) 0.2 % (0.0-2.0); EOSINOPHILS % (AUTO) 2.4 % (0.0-6.0); HEMATOCRIT 33 % (39-51); HEMOGLOBIN 11.2 g/dL (13.5-17.5); LYMPHOCYTES # (AUTO) 1.7 /CMM (0.8-4.8); LYMPHOCYTES % (AUTO) 14.6 % (20.0-44.0); MEAN CORPUSCULAR HGB CONC 34 g/dl (31.0-36.0); MEAN CORPUSCULAR VOLUME 93 fL (80-96); MONOCYTES # (AUTO) 1.5 /CMM (0.1-1.30); MONOCYTES % (AUTO) 12.8 % (2.0-12.0); NEUTROPHILS # (AUTO) 8.1 /CMM (1.8-8.9); PLATELET COUNT (AUTO) 324 /CMM (150-450); RDW COEFFICIENT OF VARIATION 13.9 (11.5-15.0); RED BLOOD CELL COUNT(AUTO) 3.56 MIL/uL (4.5-6.0); WHITE BLOOD COUNT (AUTO) 11.6 K/uL (4.3-11.0)
[2017-07-13] MEDS: INSULIN REGULAR, HUMAN 100 UNIT/ML 3 ML VIAL SQ PRN ×2 (07:20→11:52)
[2017-07-13 07:34] LABS: ALANINE AMINOTRANSFERASE 40 U/L (12-78); ALBUMIN 1.9 g/dL (3.4-5.0); ALKALINE PHOSPHATASE 75 U/L (46-116); ASPARTATE AMINOTRANSFERASE 43 U/L (15-37); BILIRUBIN,TOTAL 0.8 mg/dL (0.2-1.0); CALCIUM, SERUM 8.9 mg/dL (8.5-10.1); CARBON DIOXIDE 30 mmol/L (21-32); CHLORIDE 102 mmol/L (98-107); CREATININE 1.7 mg/dL (0.6-1.3); GLUCOSE 169 mg/dL (74-106); MAGNESIUM 1.8 mg/dL (1.8-2.4); PHOSPHORUS 2.8 mg/dL (2.5-4.9); POTASSIUM 3.8 mmol/L (3.5-5.1); SODIUM SERUM 139 mmol/L (136-145); TOTAL PROTEIN, SERUM 5.4 g/dL (6.4-8.2); UREA NITROGEN, BLOOD 24 mg/dL (7-18)
[2017-07-13 08:00] VITALS: BP 111/52
--- NOTE | 2017-07-13 08:00 | NUR ---
MS RN AM NOTES RECEIVED Pt AWAKE, RESTING IN BED. NO S/S OF ACUTE DISTRESS OR SOB NOTED. Pt IS A/OX2, WITH SOME CONFUSION. Pt IS ALERT TO NAME.('S NAME,YOUNG)IV ACCESS ON RT HAND #24G, SL. SAFETY MEASURES IN PLACE. BED LOW, LOCKED, HOB ELEVATED, SIDE RAILS UP, CALL LIGHT AND BEDSIDE TABLE WITHIN REACH. WILL CONTINUE TO MONITOR
[2017-07-13 08:25] LABS: INR 1.15 (0.87-1.13)
[2017-07-13] MEDS: SENNOSIDES/DOCUSATE SODIUM 1 TAB TABLET PO SCH (09:48)
[2017-07-13] MEDS: DOCUSATE SODIUM 100 MG CAPSULE PO SCH (09:48)
[2017-07-13] MEDS: CARVEDILOL 12.5 MG TABLET PO SCH (09:48)
[2017-07-13 09:49] VITALS: BP 111/52
[2017-07-13] MEDS: AMIODARONE HCL 200 MG TABLET PO SCH (09:49)
[2017-07-13] MEDS: PANTOPRAZOLE 40 MG TABLET.DR PO SCH (09:50)
[2017-07-13] MEDS: ASPIRIN EC 81 MG TABLET.DR PO SCH (09:52)
[2017-07-13] MEDS: CEFTRIAXONE 1 G in IV D5W 50 ML IV SCH (11:09)
--- NOTE | 2017-07-13 12:00 | NUR ---
DISCHARGED TO [facility] WITH STABLE V/S.DISCHARGE INSTRUCTIONS GIVEN TO THE ADMINISTRATIVE LAW JUDGE.REPORT CALLED TO RUBY ALMEIDA OF [facility].IV H/L TO RT HAND REMAINS INTACT WITH NO INFILTRATION,SWELLING OR REDNESS NOTED ON THE IV SITE FOR CONTINUATION OF ROCEPHIN 1 GM Q 24 HRS FOR 7 DAYS.PRESCRIPTION GIVEN TO THE EMT.ROCEPHIN IV AND WITH BLOOD SUGAR OF 314-REGULAR INSULIN 8 UNITS SQ GIVEN PRIOR TO DISCHARGE.PT DENIES ANY PAIN OR DISTRESS.
== END 2017-07-13 12:05 | DRG 82 ==
LOC: ER 03:36 → TELE 06:16 → MED 07-11 08:52
PROVIDERS: ADMIT Nurse Practitioner Acute Care; ATTEND Nurse Practitioner Acute Care
DX: S06.5X9A Traumatic subdural hemorrhage with loss of consciousness of unspecified duration, initial encounter (principal); J15.9 Unspecified bacterial pneumonia; I50.43 Acute on chronic combined systolic (congestive) and diastolic (congestive) heart failure; E44.0 Moderate protein-calorie malnutrition; N17.9 Acute kidney failure, unspecified; E11.22 Type 2 diabetes mellitus with diabetic chronic kidney disease; E11.51 Type 2 diabetes mellitus with diabetic peripheral angiopathy without gangrene; I13.0 Hypertensive heart and chronic kidney disease with heart failure and stage 1 through stage 4 chronic kidney disease, or unspecified chronic kidney disease; N39.0 Urinary tract infection, site not specified; E11.649 Type 2 diabetes mellitus with hypoglycemia without coma; I11.0 Hypertensive heart disease with heart failure; W19.XXXA Unspecified fall, initial encounter; Y92.009 Unspecified place in unspecified non-institutional (private) residence as the place of occurrence of the external cause; N18.9 Chronic kidney disease, unspecified; I48.91 Unspecified atrial fibrillation; Z79.84 Long term (current) use of oral hypoglycemic drugs; Z79.899 Other long term (current) drug therapy; D32.9 Benign neoplasm of meninges, unspecified; D63.8 Anemia in other chronic diseases classified elsewhere; E78.5 Hyperlipidemia, unspecified; E83.42 Hypomagnesemia; I25.10 Atherosclerotic heart disease of native coronary artery without angina pectoris; I25.2 Old myocardial infarction; R29.6 Repeated falls; Z95.1 Presence of aortocoronary bypass graft; Z95.0 Presence of cardiac pacemaker; Z86.73 Personal history of transient ischemic attack (TIA), and cerebral infarction without residual deficits; Z82.49 Family history of ischemic heart disease and other diseases of the circulatory system; Z79.01 Long term (current) use of anticoagulants; R26.9 Unspecified abnormalities of gait and mobility; E66.01 Morbid (severe) obesity due to excess calories; Z68.30 Body mass index [BMI] 30.0-30.9, adult; R53.81 Other malaise; R41.81 Age-related cognitive decline; L89.629 Pressure ulcer of left heel, unspecified stage; L89.519 Pressure ulcer of right ankle, unspecified stage; B96.4 Proteus (mirabilis) (morganii) as the cause of diseases classified elsewhere
CPT/HCPCS: 36415; 70450-TC; 71045-TC; 80048-TC; 80053-TC; 80061-TC; 80076-TC; 81000-TC; 82010-TC; 82140-TC; 82962-TC; 83690-TC; 83735-TC; 84100-TC; 84484-TC; 85025-TC; 85385-TC; 85730-TC; 87081-TC; 87086-TC; 87186-TC; 92611-TC; 93307-TC; 97110-TC; 97112-TC; 97530-TC; 97535-TC; A4216; A4606; J0696; J1815; J1940; J3475; J3490; J7030; J7050; J7060; Z7610